=== PATIENT | male | born 1970 | race Caucasian/White ===

== ENCOUNTER 2018-02-17 12:31 | Day surgery (SDC) | payer BC ==
[~2018-02-17] VITALS: Ht 177.8 cm; Wt 71.2 kg
[2018-02-17] MEDS ORDERED: LACTATED RINGERS 1,000 ML IV SCH ×2 (13:07→18:30)
[2018-02-17] MEDS ORDERED: BUPIVACAINE/PF 0.5% ONE (13:26)
[2018-02-17 13:29] VITALS: BP 113/80
[2018-02-17] MEDS ORDERED: ONDANSETRON ODT 8 MG PO ONE (13:30)
[2018-02-17] MEDS ORDERED: ACETAMINOPHEN 500 MG TABLET PO ONE (13:30)
[2018-02-17] MEDS ORDERED: GABAPENTIN 300 MG CAPSULE PO ONE (13:30)
[2018-02-17] MEDS ORDERED: CITA20TA9 PO (13:39)
[2018-02-17] MEDS ORDERED: FENTANYL PF 100 MCG/2ML ONE (14:13)
[2018-02-17] MEDS ORDERED: MIDAZOLAM 1 MG/ML, 2ML ONE (14:13)
[2018-02-17] MEDS ORDERED: FENTANYL PF 100 MCG/2ML IV PRN (14:30)
[2018-02-17] MEDS ORDERED: LABETALOL 5MG/ML, 20ML IV PRN (14:30)
[2018-02-17] MEDS ORDERED: ONDANSETRON 2MG/ML, 2ML IV PRN ×2 (14:30→18:30)
[2018-02-17] MEDS ORDERED: hydrALAzine 20 MG/ML, 1ML IV PRN (14:30)
[2018-02-17] MEDS ORDERED: PROMETHAZINE 25 MG SUPP PR PRN (14:30)
[2018-02-17] MEDS ORDERED: SCOPOLAMINE PATCH, 1.5MG PATCH.TD72 TD PRN (14:30)
[2018-02-17] MEDS ORDERED: MEPERIDINE/PF 25MG/0.5ML IVPush PRN (14:30)
[2018-02-17] MEDS ORDERED: OXYcodone 5 MG/5 ML ORAL.SOL UDC PO PRN ×2 (14:30→18:30)
[2018-02-17] MEDS ORDERED: MIDAZOLAM 1 MG/ML, 2ML IV PRN (14:30)
[2018-02-17] MEDS ORDERED: ALBUTEROL/IPRATROPIUM 2.5MG/0.5MG, 3 ML NPPB PRN (14:30)
[2018-02-17] MEDS ORDERED: BUPIVACAINE/PF 0.5% INFIL ONE (15:00)
[2018-02-17] MEDS ORDERED: DEXAMETHASONE 4 MG/ML, 1ML ONE (16:02)
[2018-02-17] MEDS ORDERED: PROPOFOL 10 MG/ML, 20ML ONE (16:02)
[2018-02-17] MEDS ORDERED: MORPHINE SULFATE 4 MG/ML, 1ML ONE (16:02)
[2018-02-17] MEDS ORDERED: CEFAZOLIN 1,000 MG ONE (16:02)
[2018-02-17] MEDS ORDERED: OXYcodone 5 MG/5 ML ORAL.SOL UDC ONE (17:11)
[2018-02-17] MEDS ORDERED: HYDROmorphone 2 MG/ML, 1ML ONE (17:30)
[2018-02-17] MEDS: HYDROmorphone 1 MG/ML, 1ML IV PRN ×3 (17:33→17:50)
[2018-02-17] MEDS ORDERED: OXYcodone/APAP 5/325MG TABLET PO PRN (18:30)
[2018-02-17] MEDS ORDERED: KETOROLAC 30 MG/1 ML IV SCH (18:30)
[2018-02-17] MEDS ORDERED: morphine SULFATE 10 MG/ML, 1ML IV PRN (18:30)
[2018-02-17] MEDS ORDERED: PROMETHAZINE 25 MG/ML, 1ML IM PRN (18:30)
[2018-02-17] MEDS ORDERED: OXYC5CAP2 PO (19:34)
== END 2018-02-17 20:45 | disposition home or self-care (01) ==
LOC: OUT 12:31 → 4NOR 18:14 → OUT 20:45
PROVIDERS: ATTEND Orthopaedic Surgery
DX: S44.02XA Injury of ulnar nerve at upper arm level, left arm, initial encounter (principal); W34.09XA Accidental discharge from other specified firearms, initial encounter; Y93.89 Activity, other specified; Y92.89 Other specified places as the place of occurrence of the external cause; Y99.8 Other external cause status
CPT/HCPCS: 64912; C1762; C1763; J0690; J1100; J1170; J2250; J2704; J3010; J3490; J7120; Q0162; G0378